=== PATIENT | male | born 1985 | race African-American/Black ===

== ENCOUNTER 2016-10-12 14:34 | Emergency (ER) | payer SELFPAY ==
[~2016-10-12] VITALS: Ht 180.3 cm; Wt 65.8 kg
[2016-10-12 14:36] VITALS: BP 142/79
[2016-10-12] MEDS ORDERED: DIPHTH,PERTUSS(ACELL),TET TOX 0.5 ML DISP.SYRIN. VAX IM ONE (15:00)
[2016-10-12] MEDS ORDERED: AMOX1TAB61 PO (15:09)
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
== END 2016-10-12 15:25 | disposition home or self-care (01) ==
LOC: ER 14:34
DX: L03.114 Cellulitis of left upper limb (principal); Z98.890 Other specified postprocedural states
CPT/HCPCS: 73090; 73130; 90471; 90715; 99284-25